=== PATIENT | female | born 1960 | race Caucasian/White ===

== ENCOUNTER 2019-07-24 08:58 | Outpatient (CLI) | payer BC, SELFPAY ==
--- NOTE | ~2019-07-24 | DEXA_ITS ---
Bone Density Report Name: Vannessa Ayala Age: 59 Sex: Female Ethnicity: White Date of : 1960 Indication: osteopenia; hysterectomy; Referring Provider: Nya, Cinda Agrawal Study: Bone densitometry was performed. Exam Date: July 24, 2019 Accession number: [id number] Bone Density: Region BMD T-score Z-score Classification AP Spine (L1-L4) 0.789 -2.3 -1.0 Osteopenia Femoral Neck (Left) 0.739 -1.0 0.3 Normal Total Hip (Left) 0.913 -0.2 0.7 Normal Total Hip Bilateral Avg 0.941 0.0 0.9 Normal Femoral Neck (Right) 0.842 -0.1 1.2 Normal Total Hip (Right) 0.969 0.2 1.1 Normal World Health Organization criteria for BMD impression classify patients as: Normal (T-score at or above -1.0), Osteopenia (T-score between -1.0 and -2.5), or Osteoporosis (T-score at or below -2.5). 10-year Fracture Risk(1): Major Osteoporotic Fracture 6.3% Hip Fracture 0.4% Reported Risk Factors: [place] (), Neck BMD=0.739, BMI=21.8 (1) FRAX(R) Version 3.08. Fracture probability calculated for an untreated patient. Fracture probability may be lower if the patient has received treatment. Previous Exams: Region Exam Age BMD T-score BMD Change BMD Change Date g/cm2 vs Baseline vs Previous AP Spine(L1-L4) 07/24/2019 59 0.789 -2.3 -0.076(-8.8%)* -0.076(-8.8%)* 03/05/2017 56 0.865 -1.7 Total Hip(Left) 07/24/2019 59 0.913 -0.2 -0.059(-6.1%)* -0.059(-6.1%)* 03/05/2017 56 0.972 0.2 Total Hip(Right) 07/24/2019 59 0.969 0.2 -0.050(-4.9%)* -0.050(-4.9%)* 03/05/2017 56 1.019 0.6 *Denotes significance at 95% confidence level, LSC for AP Spine = 0.022 g/cm2, LSC for Total Hip = 0.027 g/cm2 Clinical Information Provided by Patient: Has used the following medications: Vitamin D, Calcium Has the following medical conditions: Hysterectomy Patient maximum height was 65 Menopause Age: 50 Onset of menses at age 12 Number of children 2 Impression: The patient has low bone mass, based on the Total Spine T-score. The patient has an estimated ten-year risk of hip fracture of 0.4% and an estimated ten-year risk of major fracture of 6.3%, based on the WHO FRAX algorithm. The BMD for the AP Spine(L1-L4) decreased, changing by -8.8% since the last DXA exam. The BMD for the Total Hip(Left) decreased, changing by -6.1% since the last DXA exam. The BMD for the Total Hip(Right) decreased, changing by -4.9% since the last DXA exam. Discussion: ERI
== END 2019-07-24 08:59 | disposition home or self-care (01) ==
PROVIDERS: PCP Family Medicine; Visit Provider Nurse Practitioner Obstetrics & Gynecology
DX: Z78.0 Asymptomatic menopausal state (principal); M85.88 Other specified disorders of bone density and structure, other site
CPT/HCPCS: 77080

== ENCOUNTER → 2020-07-05 06:51 | Outpatient (CLI) | payer BC, SELFPAY ==
[2020-07-06 12:41] LABS: SARS-CoV-2 RNA PCR Negative
== END ==
PROVIDERS: PCP Family Medicine; Visit Provider Family Medicine
DX: Z20.822 Contact with and (suspected) exposure to COVID-19 (principal)
CPT/HCPCS: C9803; U0003; U0005

== ENCOUNTER → 2020-07-22 00:20 | Outpatient (CLI) | payer BC, SELFPAY ==
[2020-07-22 17:47] LABS: SARS-CoV-2 RNA PCR Negative
== END ==
PROVIDERS: Family Provider Hospitalist; PCP Family Medicine; Visit Provider Internal Medicine Gastroenterology
DX: Z01.812 Encounter for preprocedural laboratory examination (principal); Z20.822 Contact with and (suspected) exposure to COVID-19
CPT/HCPCS: C9803; U0003; U0005

== ENCOUNTER 2020-07-25 01:10 | Day surgery (SDC) | payer BC, SELFPAY ==
[2020-07-11 10:21] VITALS: BMI 21.6
[2020-07-25 07:59] VITALS: BP 122/81; PULSE 82; RESP 16; TEMP 36.6; O2SAT 100; BMI 21.7
[2020-07-25] MEDS: LACTATED RINGERS 1,000 ML 150 ML IV CONT (08:11)
--- NOTE | 2020-07-25 08:26 | WPDANESEPPF ---
Anes - Initial Pre Proc Eval Procedure: Operation Date: 07/25/20 09:00 Proposed Procedures p Screening Colonoscopy - Alberto Rosario MD Date/Time: 07/25/20 08:26 Surgeon: Alberto Rosario MD Pre Op Diagnosis: Neoplasm Screening Patient Data Age: 60 Gender: F Height: 5 ft 5 in Weight: 59.1 kg Last Vital Signs Temp 97.9 F 07/25/20 07:59 Pulse 82 07/25/20 07:59 Resp 16 07/25/20 07:59 BP 122/81 07/25/20 07:59 Pulse Ox 100 07/25/20 07:59 Allergies Allergy/AdvReac Type Severity Reaction Status Date / Time Cephalosporins Allergy Mild RASH Unverified 07/25/20 07:58 Penicillins Allergy Mild RASH AND Unverified 07/25/20 07:58 SWELLING tetracycline Allergy Mild Swelling Unverified 07/25/20 07:58 Home Medications Medication Instructions Recorded Confirmed Type sodium,potassium,mag sulfates See Rx Instructions .ROUTE 06/16/20 Rx [Suprep Bowel Prep Kit] .COMPLEX #1 ml Adults Multivitamin 1 cap PO DAILY 07/11/20 07/25/20 History Calcium + D 1 cap PO DAILY 07/11/20 07/25/20 History cetirizine [Zyrtec] 10 mg PO DAILY 07/11/20 07/25/20 History cholecalciferol (vitamin D3) 50 mcg PO DAILY 07/11/20 07/25/20 History [Vitamin D3] fluticasone propionate 1 spray INTRANASAL DAILY 07/11/20 07/25/20 History zolpidem 5 mg PO HS PRN 07/11/20 07/25/20 History Patient hx anesthesia problems: none Family hx anesthesia problems: none [facility] Past Medical History Medical History (Updated 07/25/20 @ 08:26 by Ilir Hicks MD) Healthy adult Social History Social History Smoking status: Never smoker Alcohol intake: current Drinks per week: 3 Alcohol use details: BEER/WINE Substance use: never Spiritual care concerns: No Anes - Eval Final PreProcedure Day of Procedure 07/25/20 08:26 Patient weight: normal Heart: regular rate and rhythm Lungs: clear to auscultation Airway: Mallampati scale class II Neurological: alert and oriented Last oral intake: >/= 8 hours ASA classification: I Emergent: no Anesthetic plan: proceed Anesthesia type and monitoring: general GIVS and standard monitoring Informed Consent: The patient's anesthetic plan and its attendant risks and benefits were discussed with the patient/family/POA. Questions were solicited and answers provided to the satisfaction of the patient/family/POA.
--- NOTE | 2020-07-25 09:14 | PM.HPGS ---
History of Present Illness History of Present Illness Consent: Risks, benefits, and alternatives have been discussed and questions answered. Patient agrees to proceed with procedure. Chief complaint: Neoplasm Screening Narrative: Vannessa Ayala is a 60 year old female here for colon screening, last one 10 years ago. Review of Systems Constitutional: Constitutional: Denies headache(s) and Denies weakness Eyes: Eyes: Denies blurry vision ENT: Reports Normal hearing present, Denies headache(s) and Denies neck pain Cardiovascular: Cardiovascular: Denies chest pain and Denies dyspnea Respiratory: Respiratory: Denies dyspnea Gastrointestinal: Gastrointestinal: Reports no additional gastrointestinal complaints Genitourinary: Genitourinary: Denies dysuria Musculoskeletal: Musculoskeletal: Denies neck pain Integumentary/Breasts: Skin/Breast: Denies dry skin Neurologic: Reports Normal hearing present, Denies headache(s) and Denies weakness Psychiatric: Psychiatric: Denies anxiety Endocrine: Endocrine: Denies change in body appearance Hematologic/Lymphatic: Hematologic/Lymphatic: Denies easy bleeding Allergic/Immunologic: Allergic/Immunologic: Denies urticaria PMFSH Past Medical History Medical History (Updated 07/25/20 @ 09:14 by Alberto Rosario MD) Colon cancer screening Healthy adult Social History Social History Smoking status: Never smoker Alcohol intake: current Drinks per week: 3 Alcohol use details: BEER/WINE Substance use: never Spiritual care concerns: No Meds Home Medications and Allergies Home Medications Medication Instructions Recorded Confirmed Type sodium,potassium,mag sulfates See Rx Instructions .ROUTE 06/16/20 Rx [Suprep Bowel Prep Kit] .COMPLEX #1 ml Adults Multivitamin 1 cap PO DAILY 07/11/20 07/25/20 History Calcium + D 1 cap PO DAILY 07/11/20 07/25/20 History cetirizine [Zyrtec] 10 mg PO DAILY 07/11/20 07/25/20 History cholecalciferol (vitamin D3) 50 mcg PO DAILY 07/11/20 07/25/20 History [Vitamin D3] fluticasone propionate 1 spray INTRANASAL DAILY 07/11/20 07/25/20 History zolpidem 5 mg PO HS PRN 07/11/20 07/25/20 History Allergies Allergy/AdvReac Type Severity Reaction Status Date / Time Cephalosporins Allergy Mild RASH Unverified 07/25/20 07:58 Penicillins Allergy Mild RASH AND Unverified 07/25/20 07:58 SWELLING tetracycline Allergy Mild Swelling Unverified 07/25/20 07:58 Vital Signs Vital Signs - 24 hr 07/25/20 07:59 Temperature 97.9 F Pulse Rate 82 Respiratory Rate 16 Blood Pressure 122/81 Pulse Oximetry 100 Exam Const: General: comfortable and no acute distress HENMT: General nose exam: Normal nares present Eyes: General: appearance normal, both eyes and all related structures Neck: Neck: no JVD Resp: Auscultation: clear to auscultation bilaterally Cardio: Rate: regular rate Rhythm: regular rhythm GI: Inspection: non-distended GI Palp: Yes Soft to palpation Skin: General skin exam: normal color Neuro: General: gait normal Speech: normal speech Extrem: General: normal to inspection Psych: Mental Status: mental status grossly normal Assessment and Plan Assessment and plan (1) Colon cancer screening: Code(s): Z12.11 - Encounter for screening for malignant neoplasm of colon Status: Acute Assessment and Plan: proceed with colonoscopy
[2020-07-25 09:35] VITALS: BP 118/77; PULSE 79; RESP 23; O2SAT 97
[2020-07-25 09:45] VITALS: BP 114/77; PULSE 77; RESP 19; O2SAT 99
[2020-07-25 09:55] VITALS: BP 115/73; PULSE 73; RESP 23; O2SAT 99
== END 2020-07-25 10:01 | disposition home or self-care (01) ==
PROVIDERS: Family Provider Hospitalist; PCP Family Medicine; Visit Provider Internal Medicine Gastroenterology
PROC: 0DJD8ZZ Inspection of Lower Intestinal Tract, Via Natural or Artificial Opening Endoscopic (ICD-10-PCS; CPT 45378; principal; 2020-07-25 09:00)
DX: Z12.11 Encounter for screening for malignant neoplasm of colon (principal); K57.30 Diverticulosis of large intestine without perforation or abscess without bleeding; K64.8 Other hemorrhoids
CPT/HCPCS: 45378; J7120

== ENCOUNTER 2020-08-01 09:19 | Outpatient (CLI) | payer BC, SELFPAY ==
--- NOTE | ~2020-08-01 | MM_ITS ---
EXAMINATION: MM screening [facility] BI w jen HISTORY: Screening mammogram TECHNIQUE: Craniocaudal and mediolateral oblique 3-D tomosynthesis images were obtained and synthetic 2-D images were generated. CAD analysis was submitted and interpreted. COMPARISON: Serial mammographic examinations dating back to 05/23/2012 BREAST PARENCHYMAL COMPOSITION: There are scattered areas of fibroglandular density. FINDINGS: There is stable fibroglandular asymmetry again back to 05/23/2012. There is no evidence of suspicious mass, calcification, or architectural distortion to suggest malignancy in either breast. T here has been no suspicious interval change. IMPRESSION: 1. No mammographic evidence of malignancy. 2. Recommend routine screening mammography in one year. BI-RADS Category 2: Benign finding(s). Reviewed, dictated and finalized at location A. L CITY DRIVER
== END 2020-08-01 09:20 | disposition home or self-care (01) ==
LOC: ANHIMG 09:21
PROVIDERS: Family Provider Hospitalist; PCP Family Medicine; Visit Provider Family Medicine
DX: Z12.31 Encounter for screening mammogram for malignant neoplasm of breast (principal)
CPT/HCPCS: 77063; 77067

== ENCOUNTER 2021-09-22 07:51 | Outpatient (CLI) | payer BC, SELFPAY ==
--- NOTE | ~2021-09-22 | MM_ITS ---
EXAMINATION: MM screening [facility] BI w jen HISTORY: Screening TECHNIQUE: Craniocaudal and mediolateral oblique 3-D tomosynthesis images were obtained and synthetic 2-D images were generated. CAD analysis was submitted and interpreted. COMPARISON: Comparison to multiple prior studies sequentially, with oldest reviewed study dated 08/23. BREAST PARENCHYMAL COMPOSITION: There are scattered areas of fibroglandular density. FINDINGS: There is no evidence of suspicious mass, calcification, or architectural distortion to sugg est malignancy in either breast. There has been no suspicious interval change. IMPRESSION: 1. No mammographic evidence of malignancy. 2. Recommend routine screening mammography in one year. BI-RADS Category 2: Benign finding(s). Reviewed, dictated and finalized at location A.
== END 2021-09-22 07:52 | disposition home or self-care (01) ==
LOC: ANHIMG 07:52
PROVIDERS: PCP Family Medicine; Visit Provider Family Medicine
DX: Z12.31 Encounter for screening mammogram for malignant neoplasm of breast (principal)
CPT/HCPCS: 77063; 77067

== ENCOUNTER 2023-01-25 07:51 | Outpatient (CLI) | payer BC, SELFPAY ==
--- NOTE | ~2023-01-25 | MM_ITS ---
EXAMINATION: MM screening [facility] w jen HISTORY: Screening mammogram TECHNIQUE: Craniocaudal and mediolateral oblique 3-D tomosynthesis images were obtained and synthetic 2-D images were generated. CAD analysis was submitted and interpreted. COMPARISON: 09/22/2021, 321, 06/09/2019 BREAST PARENCHYMAL COMPOSITION:There are scattered areas of fibroglandular density. FINDINGS: No suspicious mass, calcification, or architectural distortion are identified in either dario ast to suggest malignancy. There has been no suspicious interval change. IMPRESSION: No mammographic evidence of malignancy. Recommend routine screening mammography in one year. BI-RADS Category 1: Negative Reviewed, dictated and finalized at location .
== END 2023-01-25 07:52 | disposition home or self-care (01) ==
LOC: ANHIMG 07:53
PROVIDERS: PCP Family Medicine; Visit Provider Family Medicine
DX: Z12.31 Encounter for screening mammogram for malignant neoplasm of breast (principal)
CPT/HCPCS: 77063; 77067

== ENCOUNTER 2023-09-13 13:29 | Outpatient (CLI) | payer BC, SELFPAY ==
--- NOTE | ~2023-09-13 | DEXA_ITS ---
Bone Density Report Name: DINESH WALDRON Age: 63 Sex: Female Ethnicity: White Date of : 1960 Indication: postmenopausal; screening for osteoporosis; hysterectomy; Referring Provider: SAM, BRISA Saldana Study: Bone densitometry was performed. Exam Date: September 13, 2023 Accession number: [id number] Bone Density: Region BMD T-score Z-score Classification AP Spine(L1-L4) 0.823 -2.0 -0.4 Osteopenia Femoral Neck (Left) 0.741 -1.0 0.4 Normal Total Hip (Left) 0.879 -0.5 0.6 Normal Femoral Neck (Right) 0.784 -0.6 0.8 Normal Total Hip (Right) 0.942 0.0 1.1 Normal Total Hip Mean 0.910 -0.3 0.9 Normal World Health Organization criteria for BMD impression classify patients as: Normal (T-score at or above -1.0), Osteopenia (T-score between -1.0 and -2.5), or Osteoporosis (T-score at or below -2.5). 10-year Fracture Risk(1): Major Osteoporotic Fracture 7.3% Hip Fracture 0.5% Reported Risk Factors: [place] (), Neck BMD=0.741, BMI=22.5 (1) FRAX(R) Version 3.08. Fracture probability calculated for an untreated patient. Fracture probability may be lower if the patient has received treatment. Clinical Information Provided by Patient: Has used the following medications: Vitamin D, Calcium Has the following medical conditions: Hysterectomy Patient maximum height was 65 Menopause Age: 50 No regular weight bearing exercise Drinks caffeinated beverages Onset of menses at age 12 Number of children 2 Impression: The patient has low bone mass, based on the Total Spine T-score. The patient has an estimated ten-year risk of hip fracture of 0.5% and an estimated ten-year risk of major fracture of 7.3%, based on the WHO FRAX algorithm. Discussion: BONE DENSITY IS LOW AT ONE OR MORE SKELETAL SITES. This patient's lowest T-score is low at one or more skeletal sites. It meets the World Health Organization's (WHO) criteria for ?low bone mass? (T-score between -1.0 and -2.5). The patient's 10-year risk of fracture as calculated by FRAX is less than the threshold where pharmacological therapy is recommended by the National Osteoporosis Foundation (NOF). However, all treatment decisions require clinical judgment and consideration of individual patient factors, including patient preferences, comorbidities, previous drug use, risk factors not captured in the FRAX model (e.g., frailty, falls, vitamin D deficiency, increased bone turnover, interval significant decline in bone density) and possible under or overestimation of fracture risk by FRAX. The patient should follow a healthful lifestyle (good nutrition with adequate calcium and vitamin D, and appropriate weight-bearing exercise). Follow-Up: Consider repeating this study in 2 to 3 years to reassess this patient's status, or sooner if there is some new clinical indication. Reported by: LANI on 09/13/2023 1:49:00 PM. Reviewed, dictated and finalized at location A. NAREN
== END 2023-09-13 13:30 | disposition home or self-care (01) ==
LOC: ANHIMG 13:31
PROVIDERS: PCP Family Medicine; Visit Provider Family Medicine
DX: M85.89 Other specified disorders of bone density and structure, multiple sites (principal)
CPT/HCPCS: 77080

== ENCOUNTER 2024-12-28 14:15 | Outpatient (CLI) | payer BC, SELFPAY ==
--- OUTSIDE RECORDS SUMMARY | 2024-12-28 14:26 | XMS_ITS | Clinical Summary ---
Author Organization [facility] Address [address] [place] [address] [place] [address] Care Team Providers Care Emd Special Education Teacher Name Role Phone Thania Campos MD Primary Care Provider [phone] Source Comments [facility],non-owned Affiliates and Associated Physician Practices is amultiple site organization consisting of ambulatory clinics and hospital sitesin [place], [place], [place] and [place]. This disclosure is being madepursuant to the Care Everywhere program and may not contain all information available regarding this patient. Last updated 18.[facility] Allergies Active Allergy Reactions Criticality Noted Date Comments Cephalexin Other 05/22/2012 Penicillin G Skin Reactions,Itching,Swelling,Other Medium 08/18/2012 Medications * Be aware that medications may not be up to date on this document. Alwaysverify current medications with the patient. Cholecalciferol (VITAMIN D-3 PO) Take 1 tablet by mouth once daily Active FLUCELVAX QUADRIVALENT 0.5 ML injection 1 Each by Subconjunctival route as needed 02/26/20 18 Active Calcium Carbonate-Vit D-Min (CALCIUM 1200 PO) Take 1 tablet by mouth once daily Active Multiple Vitamins-Mineral s (MULTIVITAMIN & MINERAL PO) Take 1 tablet by mouth once daily Active KRILL OIL PO Take 1 tablet by mouth once daily Active Influenza Vac Tiss-Cult Subunt (FLUCELVAX IM) Flucelvax Quad 2245-2196 (PF) 60 mcg (15 mcg x 4)/0.5 mL IM syringe TO BE ADMINISTERED BY PHARMACIST FOR IMMUNIZATION Active Active Problems Problem Noted Date Diagnosed Date 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 (FLUCELVAX QUADRIVALENT; 6MO+) (CCIIV4) 03/04/2019 INFLUENZA VACCINE, QUADR. (F LUZONE; FLULAVAL; FLUARIX; AFLURIA QUADRIVALENT; 6MO+), 0.5 ML (IIV4) 01/29/2020 TDAP (7yrs+) 12/05/2019 Zoster Hzv Vacc Recombinant Inj Im 04/05/2020, Family History Medical History Relation Name Comments Cancer Brother Glaucoma Maternal Uncle Macular Degeneration Maternal Uncle Diabetes - Type 2 Neg Hx Relation Name Status Comments Brother Maternal Uncle Social History Tobacco Use Types Packs/Day Years Used Date Smoking Tobacco: Never Smokeless Tobacco: Never Alcohol Use Standard Drinks/Week Comments Yes 0 (1 standard drink = 0.6 oz pur e alcohol) Comments Unknown Sex and Gender Information Value Date Recorded Sex Assigned at Not on file 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 Gender Identity Not on file Sexual Orientation Not on file Plan of Treatment Upcoming Encounters Date Type Department Care Team (Late st Contact Info) Description 02/12/2025 11:00 AM CDT Office Visit [facility] - Ophthalmology [address] [place] [address] Justin Chirinos, SHERMAN [address] [place] [address] Health Maintenance Due Date Last Done Comments COLOGUARD (AGES 45-75) - COLON CA SCREENING 1960 COLON MONITORING 1960 COLONOSCOPY - COLON CA SCREENING 1960 CT COLONOGRAPHY - COLON CA SCREENING 1960 Colorectal Cancer Screening 1960 FIT - COLON CA SCREENING 1960 FLEX SIG - COLON CA SCREENING 1960 LIPID TESTING 1960 MAMMOGRAM 1960 HIV SCREENING 1975 HEPATITIS C SCREENING 06/27/1978 PAP SMEAR 1981 PNEUMOCOCCAL VACCINE 50+ (1 of 1 - PCV) 2010 COVID-19 VACCINE (1 - season) 2024 DEPRESSION SCREENING 05/27/2024 INFLUENZA VACCINE (#1) 2025 , 01/29/2020, 03/12/2019, Additional history exists DTAP/TDAP/TD VACCINES (2 - Td or Tdap) 12/04/2029 12/05/2019 Respiratory Syncytial Virus (RSV) Vaccine Pt: or over 60 yrs (1 - 1-dose 75+ series) 2035 ZOSTER VACCINE Completed 04/05/2020, 01/29/2020 HEPATITIS B VACCINE Aged Out No longe r eligible based on patient's age to complete this topic HIB VACCINE Aged Out No longer eligi ble based on patient's age to complete this topic HPV VACCINE Aged Out No longer eligi ble based on patient's age to complete this topic MENINGOCOCCAL (Group B) VACCINE SHARED DECISION-MAKING Aged Out No longer eligible based on patient's age to complete this topic MENINGOCOCCAL GROUPS A/C/Y/W VACCINE Aged Out No longer eligible based on patient's age to complete this topic Insurance RAHUL ANTHEM Care Teams Emd Special Education Teacher Relationship Specialty Start Date End Date Thania Campos MD [address] [place] [address] [place] [id number] PCP - General 06/25/19
--- OUTSIDE RECORDS SUMMARY | 2024-12-28 14:26 | XMS_ITS | Encounter Summary ---
Author Organization [facility] Healthcare Address [address] [place] [id number] Care Team Providers Care Naval Marine Engineer Name Role Phone Simon Boyle MD Primary Care Provider [phone] Reason for Visit * Reason Onset Date Comments Chest Pain 12/07/2024 Shortness of Breath 12/07/2024 Encounter Details Date Type Department Care Team (Late st Contact Info) Description 12/07/2024 Nurse Triage [facility] Family Medicine at [address] [phone] Simon Boyle MD [address] [place] [phone] Social History Tobacco Use Types Packs/Day Years Used Date Smoking Tobacco: Never Cigarettes Smokeless Tobacco: Never AUDIT-C Answer Date Recorded Q1: How often do you have a drink containing alc ohol? Monthly or less 02/24/2024 Q2: How many drinks containi ng alcohol do you have on a typical day when you are drinking? 1 or 2 02/24/2024 Q3: How often do you have si x or more drinks on one occasion? 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 Noticed this couple weeks ago onvacation. This past weekend noticed symptoms again, very mild, while walking at ball game. These symptoms seem to only come on with more exertion. No symptoms at rest. Denies chest pain or pressure. Pt is able to do normal daily activities and even more mild outdoor activities without the symptoms.Denies wheezing, coughing, illness s/s. Denies palpitations. Pt is currently not having any symptoms at all. RN gave care advice and tasking to PCP clinical group as no soon open OV with PCP and pt asymptomatic currently, looking for advice regarding evaluation for mild chest tightness and mild SOB with greater exertional activities. Pt to call if worsens. Disposition Go to Office Now Reason for Disposition MILD difficulty breathing (e.g., minimal/no SOB at rest, SOB with walking, pulse < 100) of new-onset or worse than normal Protocols Used Breathing [id number] * Telephone Encounter - Liliana Siddiqi RN - 12/07/2024 11:31 AM CDT Regarding: tightness in chest, shortness of breath ----- Message from Ariane Jaffe sent at 12/07/2024 11:30 AM CDT ----- Symptom Based Call Chief Complaint(s): tightness in chest, shortness of breath Duration: about two weeks What type of symptom(s) is the patient experiencing? Red Flag. Is the patient concerned they are experiencing a medical emergency requiring an ambulance? No Additional Comments: patient has been having chest tightness and discomfort, and feeling out of breath. Patient states this first occurred about two weeks ago on vacation and stated that she noticed it happening again yesterday. Does message need to be routed? Yes-Action Needed documented in this encounter Plan of Treatment Upcoming Encounters Date Type Department Care Team (Late st Contact Info) Description 12/31/2024 8:30 AM CDT Hospital Encounter [facility] Nuclear Medicine [address] [place] [id number] documented as of this encounter Visit Diagnoses Not on filedocumented in this encounter Care Teams Naval Marine Engineer Relationship Specialty Start Date End Date Simon Boyle MD [address] [facility] [address] [address] PCP - General Family Medicine 02/24/24 documented as of this encounter
--- OUTSIDE RECORDS SUMMARY | 2024-12-28 14:26 | XMS_ITS | Referral Summary ---
[facility] Address [address] [place] [address] Care Team Providers Care Taste Tester Name Role Phone Simon Boyle MD Primary Care Provider [phone] Encounters Date Type Department Care Team Description 12/18/2024 8:30 AM CDT Office Visit [facility] Cardiology [address] [facility] [address] [place] [address] Marli Mera MD Mixed hyperlipidemia (Primary Dx); Exertional chest pain; Exertional chest pain 12/14/2024 Patient Message [facility] Family Medicine at [address] [place] [phone] Simon Boyle MD [employer] appt 12/07/2024 1:15 PM CDT Office Visit [facility] at [address] [place] [phone] Simon Boyle MD Exertional chest pain (Primary Dx); Dyslipidemia; Presbycusis of both ears 12/07/2024 Nurse Triage [address] [place] [address] Simno Boyle MD from Last 3 Months Allergies Active Allergy Reactions Criticality Noted Date Comments Cephalexin Other (See comments) Low 05/22/2012 Penicillins Itching,Other (See comments),Unknown,Swelling Medium 08/16/2012 Itching Venom-Wasp Itching,Swelling Medium 02/24/2024 Medications fluticasone propionate (FLONASE) 50 mcg/actuation nasal spray Administer 1 spray into each nostril daily 4 Active cetirizine (ZyrTEC) 10 mg tablet Take 1 tablet (10 mg total) by mouth daily Active atorvastatin (LIPITOR) 10 mg tabletIndicatio ns:Dyslipidemia Take 1 tablet (10 mg total) by mouth daily 90 tablet 3 5 12/08/19 26 Active Active Problems Problem Noted Date Diagnosed Date Mixed hyperlipidemia 12/17/2024 Assessment & Plan (12/18/2024 10:11 AM CDT): Continue statin. Exertional chest pain 12/07/2024 Assessment & Plan (12/18/2024 10:11 AM CDT): The patient reports exertional chest pain. I have recommended an exercise nuclear stress test for further evaluation. I have also recommended an echocardiogram to evaluate for structural abnormalities contributing to her chest pain. She is currently active without limitations. Cyst of breast 06/26/2011 Immunizations Immunization Administration Dates Next Due Influenza, Quadrivalent, Katelin l Culture-based MDCK, Preservative Free, Antibiotic Free, Intramuscular 02/04/2023,03/21/2022,03/04/2019,02/24 Influenza, Quadrivalent, Spl it, Preservative Free, Intramuscular 01/29/2020,03/20/2017,03/02/2016 Influenza, Trivalent, IM (MDV) 03/01/2014 Influenza, Trivalent, Preser vative Free, Intramuscular 02/24/2024 Influenza, Unspecified 03/26/2021,03/12/2019 Tdap 12/05/2019 ZOSTER Recombinant 04/05/2020,01/29/2020 Social History Tobacco Use Types Packs/Day Years Used Date Smoking Tobacco: Never Smokeless Tobacco: Never Tobacco Cessation:Counseling Given: Not Answered AUDIT-C Answer Date Recorded Q1: How often [...] on file 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 Gender Identity Not on file Sexual Orientation Not on file Last Filed Vital Signs Vital Sign Reading Time Taken Comments Blood Pressure 132/80 12/18/2024 8:10 AM CDT Pulse 84 12/18/2024 8:10 AM CDT Temperature 36.6 C (97.8 F) 12/07/2024 1:17 PM CDT Respiratory Rate 14 12/07/2024 1:17 PM CDT Oxygen Saturation 99% 12/18/2024 8:10 AM CDT Inhaled Oxygen Concentration - - Weight 61 kg (134 lb 6.4 oz) 12/18/2024 8:10 AM CDT Height 165.1 cm (5' 5) 12/07/2024 1:17 PM CDT Body Mass Index 22.37 12/07/2024 1:17 PM CDT Plan of Treatment Upcoming Encounters Date Type Department Care Team (Late st Contact Info) Description 12/31/2024 8:30 AM CDT Hospital Encounter [facility] Nuclear Medicine [address] [place] [id number] Procedures Procedure Name Priority Date/Time Associated Diagnosis Comments ECG 12-LEAD Routine 12/07/2024 1:38 PM CDT Exertional chest pain HEPATITIS C ANTIBODY Routine 05/15/2024 9:22 AM FIRMWARE MANAGER Need for hepatitis C screening test SCREENING MAMMOGRAM BILATERAL W AUSTYN Schedule Routine, Read Routine (OP Routine) 04/15/2024 1:58 PM FIRMWARE MANAGER Encounter for screening mammogram for malignant neoplasm of breast COLONOSCOPY Routine 07/25/2020 11:53 AM FIRMWARE MANAGER from Last 3 Months or Most Recently Relevant to Health Maintenance Results * ECG 12 lead (12/07/2024 1:38 PM CDT) Simon Boyle MD ECG ORDERABLES Edited Result - Final * Hepatitis C antibody Blood (05/15/2024 9:22 AM FIRMWARE MANAGER) Hep C Ab NON-REACTI VE NON-REACT TAY[facility] Comment: HCV antibody was non-reactive. There is no laboratory evidence of HCV infection. In most cases, no further action is required. However, if recent HCV exposure is suspected, a test for HCV RNA (test code 72996) is suggested. For additional information please refer to http://education.Teamly/faq/BCM81n4 (This link is being provided for informational/ educational purposes only.) Blood 05/15/2024 9:22 AM FIRMWARE MANAGER 05/15/2024 9:22 AM FIRMWARE MANAGER Simon Boyle MD LAB MICROBIOLOGY - GENERAL ORDER ARTEM Final Result [employer] [facility] [address] [place] [phone] * (ABNORMAL) SCREENING MAMMOGRAM BILATERAL W AUSTYN (04/15/2024 1:58 PM FIRMWARE MANAGER) Anatomical Region Laterality Modality Breast Bilateral Mammography Impressions 04/17/2024 2:43 PM FIRMWARE MANAGER BI-RADS ATLAS category (overall): 0 - Incomplete: Needs Additional Imaging Evaluation 1. Indeterminate right breast finding as described above. Further evaluation with diagnostic right mammography and possible diagnostic right breast ultrasound is recommended. 2. No mammographic evidence of malignancy in the left breast. Routine screening mammography of the left breast is recommended in 1 year. The patient has been or will be contacted. Narrative 04/17/2024 2:43 PM FIRMWARE MANAGER SCREENING MAMMOGRAM BILATERAL W AUSTYN: 04/15/24 The study was acquired using full field digital technology and interpreted from soft copy. 2D digital mammographic views, as well as 3D digital tomosynthesis were performed in the CC and MLO projections. This study was resulted using Computer-Aided Detection (CAD). CLINICAL: Encounter for screening mammogram for malignant neoplasm of breast. No relevant medical history has been documented for this patient. History of breast cancer in Mother's Sister. COMPARISONS: 01/25/2023 Breast Imaging Screening Outside Reference 09/22/2021 Breast Imaging Screening Outside Reference 08/01/2020 Breast Imaging Screening Outside Reference 06/09/2019 Breast Imaging Screening Outside Reference 04/03/2018 Breast Imaging Screening Outside Reference BREAST TISSUE: There are scattered areas of fibroglandular density. FINDINGS: There is a possible area of architectural distortion in the posterior upper outer right breast on the CC view. This appears largely similar to prior outside mammograms; however, there is no documented history of breast biopsy/surgery to account for this potential distortion. There is no other suspicious finding in either breast on mammogram. Simon Boyle MD IMG MAMMO PROCEDURES Final Resul t * Colonoscopy (07/25/2020 11:53 AM FIRMWARE MANAGER) Anatomical Region Laterality Modality Other Historical Provider ENDOSCOPY PROCEDURES [facility] Result from Last 3 Months or Most Recently Relevant to Health Maintenance Insurance [employer] [facility] [employer] [facility] Care Teams Taste Tester Relationship Specialty Start Date End Date Simon Boyle MD [address] [address] PCP - General Family Medicine 02/24/24
--- OUTSIDE RECORDS SUMMARY | 2024-12-28 14:26 | XMS_ITS | Clinical Summary ---
[facility] Address [address] [place] [phone] Care Team Providers Care Sales Mgr Name Role Phone Simon Boyle MD Primary Care Provider [phone] Allergies Active Allergy Reactions Criticality Noted Date [...] active without limitations. Cyst of breast 06/26/2011 Encounters Date Type Department Care Team Description 12/18/2024 8:30 AM CDT Office Visit [facility] Cardiology [address] [facility] [address] [place] [phone] Marli Mera MD Mixed hyperlipidemia (Primary Dx); Exertional chest pain; Exertional chest pain 12/14/2024 Patient Message [facility] Medicine at [address] [place] [address] Simon Boyle MD Instructional Support Specialist appt 12/07/2024 1:15 PM CDT Office Visit [facility] at [address] [phone] Simon Boyle MD Exertional chest pain (Primary Dx); Dyslipidemia; Presbycusis of both ears 12/07/[address] [facility] at [address] [place] [address] Simon Boyle MD from Last 3 Months Immunizations Immunization Administration Dates Next Due Influenza, Quadrivalent, Katelin l Culture-based MDCK, Preservative Free, Antibiotic Free, Intramuscular 02/04/2023,03/21/2022,03/04/2019,02/24 Influenza, Quadrivalent, Spl it, Preservative Free, Intramuscular 01/29/2020,03/20/2017,03/02/2016 Influenza, Trivalent, IM (MDV) 03/01/2014 Influenza, Trivalent, Preser vative Free, Intramuscular 02/24/2024 Influenza, Unspecified 03/26/2021,03/12/2019 Tdap 12/05/2019 ZOSTER Recombinant 04/05/2020,01/29/2020 Surgical History Surgery Date Site/Laterality Comments BREAST SURGERY 2005 HYSTERECTOMY LASIK 2005 DILATION AND CURETTAGE OF UTERUS Medical History Medical History Date Comments Chest pain Hyperlipidemia Family History Medical History Relation Name Comments Alzheimer's disease Father Wilbur Flor Heart attack Father Wilbur Flor Heart disease Father Wilbur Flor Hypertension Father Wilbur Flor Stroke Father Wilbur Flor Arthritis Mother Carlita Flor Hearing loss Mother Carlita Flor Breast cancer Mother's Sister Relation Name Status Comments Father Wilbur Flor Mother Carlita Flor Mother's Sister Social History Tobacco Use Types Packs/Day Years [...] on file 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 Gender Identity Not on file Sexual Orientation Not on file Obstetrics History Para Term AB IAB SAB Ectopic Multiple Livin g Live Births 3 2 2 Date Outcome GA Total Labor Labor/2nd/3rd Weight Sex Type Anes PTL Tiffany A1 A5 Name Clin Term Term Last Filed Vital Signs Vital Sign Reading [...] Description 12/31/2024 8:30 AM CDT Hospital Encounter [facility] Nuclear Medicine [address] [place] [phone] Health Maintenance Due Date Last Done Comments Covid-19 Vaccine ( season) 2024 03/21/2022, 08/20/2020, 07/28/2020 Influenza Vaccine (#1) 2025 4, 02/04/2023, 03/21/2022, Additional history exists Depression Screening 02/23/2025 02/24/2024 Regular Well Visit/Exam 18-64 02/23/2025 02/24/2024 Breast Cancer Screening-Mammogram 04/15/2025 04/15/2024 DTaP/Tdap/Td Vaccine (2 - Td or Tdap) 12/04/2029 12/05/2019 Colon Cancer Screening-Colonoscopy 07/25/2030 07/25/2020 Zoster Vaccine Completed 04/05/2020, 01/29/2020 Hepatitis B Screening Completed 05/15/2024 Hepatitis C Screening Completed 05/15/2024 Pneumococcal vaccine <65 Aged Out No longer eligible based on patient's age to complete this topic Procedures Procedure Name Priority Date/Time Associated Diagnosis Comments ECG 12-LEAD Routine 12/07/2024 1:38 PM CDT Exertional chest pain HEPATITIS C ANTIBODY Routine 05/15/2024 9:22 AM TRAFFIC ENGINEERING TECHNICIAN Need for hepatitis C screening test SCREENING MAMMOGRAM BILATERAL W AUSTYN Schedule Routine, Read Routine (OP Routine) 04/15/2024 1:58 PM TRAFFIC ENGINEERING TECHNICIAN Encounter for screening mammogram for malignant neoplasm of breast COLONOSCOPY Routine 07/25/2020 11:53 AM TRAFFIC ENGINEERING TECHNICIAN from Last 3 Months or Most Recently Relevant to Health Maintenance Results * ECG 12 lead (12/07/2024 1:38 PM CDT) us Simon Boyle MD ECG ORDERABLES Edited Result - Final * Hepatitis C antibody Blood (05/15/2024 9:22 AM TRAFFIC ENGINEERING TECHNICIAN) Hep C Ab NON-REACTI VE NON-REACT TAY[facility] Comment: HCV antibody was non-reactive. There is no laboratory evidence of HCV infection. In most cases, no further action is required. However, if recent HCV exposure is suspected, a test for HCV RNA (test code 90246) is suggested. For additional information please refer to http://education.[employer].Alyotech/faq/GWP92b0 (This link is being provided for informational/ educational purposes only.) Blood 05/15/2024 9:22 AM TRAFFIC ENGINEERING TECHNICIAN 05/15/2024 9:22 AM TRAFFIC ENGINEERING TECHNICIAN Simon Boyle MD LAB MICROBIOLOGY - GENERAL ORDER ARTEM Final Result [facility] [address] [place] [address] * (ABNORMAL) SCREENING MAMMOGRAM BILATERAL W AUSTYN (04/15/2024 1:58 PM TRAFFIC ENGINEERING TECHNICIAN) Anatomical Region Laterality Modality Breast Bilateral Mammography Impressions 04/17/2024 2:43 PM TRAFFIC ENGINEERING TECHNICIAN BI-RADS ATLAS category (overall): 0 - Incomplete: [...] will be contacted. Narrative 04/17/2024 2:43 PM TRAFFIC ENGINEERING TECHNICIAN SCREENING MAMMOGRAM BILATERAL W AUSTYN: 04/15/24 The [...] Resul t * Colonoscopy (07/25/2020 11:53 AM TRAFFIC ENGINEERING TECHNICIAN) Anatomical Region Laterality Modality Other Historical Provider ENDOSCOPY PROCEDURES [facility] Result from Last 3 Months or Most Recently Relevant to Health Maintenance Insurance [employer] [place] [employer] [place] Care Teams Sales Mgr Relationship Specialty Start Date End Date Simon Boyle MD [address] [facility] [address] [place] [address] [place] [phone] PCP - General Family Medicine 02/24/24
== END 2024-12-28 14:16 | disposition home or self-care (01) ==
LOC: ANHAUDIO 14:15
PROVIDERS: PCP Family Medicine; Visit Provider Family Medicine
DX: H90.72 Mixed conductive and sensorineural hearing loss, unilateral, left ear, with unrestricted hearing on the contralateral side (principal)
CPT/HCPCS: 92557; 92567